=== PATIENT | female | born 1995 | race African-American/Black ===

== ENCOUNTER 2016-11-22 11:30 | Emergency (ER) | payer SELFPAY ==
[2016-11-22 11:48] VITALS: BP 132/72
[2016-11-22] MEDS ORDERED: Sodium Chloride 0.9% 10 ML Syringe FLUSH PRN (12:09)
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
--- NOTE | 2016-11-23 11:12 | US ---
First trimester obstetrical ultrasound: Multiple real-time images were obtained transvaginally. Comparison: No previous study. Dates: LMP: LMP given as 09/11/16, BARBARA 06/18/17, gestational age 10 weeks 2 days Current ultrasound: BARBARA 06/24/17, gestational age 9 weeks 3 days Single intrauterine gestation is seen. Amniotic fluid volume is normal. Embryo is seen. No subchorionic hemorrhage is identified. Maternal ovaries are identified and appear unremarkable. Measurements: Gestational sac: 3.59 cm - 8 weeks 5 days [place]-rump length: 2.69 cm - 9 weeks 3 days Heart rate: 165 bpm Impression: 1. Single intrauterine gestation. Dates as noted above. 2. No complicating abnormality is identified by ultrasound at this time. Diagnostic code #1 Agree with preliminary report issued by [employer] ([employer] preliminary report dictated on 11/22/16, 3:07 PM Central Time)
== END 2016-11-22 14:51 | disposition home or self-care (01) ==
LOC: JD.ED 11:30
DX: O99.89 Other specified diseases and conditions complicating pregnancy, childbirth and the puerperium (principal); R10.9 Unspecified abdominal pain; Z3A.09 9 weeks gestation of pregnancy
CPT/HCPCS: 36415; 76817; 84702; 85025; 86900; 86901; 99284; J7050; 99283